=== PATIENT | female | born 1960 | race Caucasian/White ===

== ENCOUNTER 2017-02-03 16:37 | Emergency (ER) | payer BC ==
[2017-02-03 16:54] VITALS: BP 135/87; PULSE 88; RESP 18; TEMP 98.6
[2017-02-03] MEDS ORDERED: ORPHENADRINE 30 MG/ML 2 ML VIAL IM STA (17:00)
[2017-02-03] MEDS ORDERED: KETOROLAC 60 MG/2 ML VIAL IM STA (17:00)
--- NOTE | 2017-02-03 17:07 | ED ---
General Adult HPI - General Chief complaint: Back Pain/Injury Stated complaint: low back/leg pain Time Seen by Provider: 02/03/17 16:56 Source: patient, RN notes reviewed Mode of arrival: ambulatory Limitations: no limitations - History of Present Illness Initial comments: 56 yo female presents to the ER with cc of right sided back pain. Patient states she has had pain in the right side of the back that radiates into the right hip. She states walking seems to make it worse. She denies any loss of bowel or bladder function. She denies any saddle anesthesia. There is been no fever or chills. She states she was concerned due to the continued flare up with the pain so she thought that she should be evaluated. Patient denies any recent fever, chills, shortness of breath, chest pain, abdominal pain, nausea vomiting, numbness or tingling, dysuria or hematuria, constipation or diarrhea, headaches or visual changes, or any other current symptoms. - Related Data Previous Rx's Medication Instructions Recorded Acetaminophen-Codeine 300-30mg 1 each PO Q6H PRN #20 tablet 05/30/14 [Tylenol #3] Ibuprofen [Motrin] 800 mg PO Q8HR PRN #30 tab 05/30/14 Ibuprofen [Motrin] 600 mg PO Q6HR PRN #20 tab 02/03/17 Orphenadrine [Norflex] 100 mg PO Q12H #10 tablet.er 02/03/17 Allergies Allergy/AdvReac Type Severity Reaction Status Date / Time codeine AdvReac Unknown Verified 02/03/17 16:49 Review of Systems ROS Statement: Those systems with pertinent positive or pertinent negative responses have been documented in the HPI. ROS Other: All systems not noted in ROS Statement are negative. Past Medical History Past Medical History: No Reported History History of Any Multi-Drug Resistant Organisms: None Reported Past Surgical History: Section Past Psychological History: No Psychological Hx Reported Smoking Status: Never smoker Past Alcohol Use History: None Reported Past Drug Use History: None Reported General Exam Limitations: no limitations General appearance: alert, in no apparent distress ENT exam: Present: normal exam, mucous membranes moist Neck exam: Present: normal inspection. Absent: tenderness, meningismus, lymphadenopathy Respiratory exam: Present: normal lung sounds bilaterally. Absent: respiratory distress, wheezes, rales, rhonchi, stridor Cardiovascular Exam: Present: regular rate, normal rhythm, normal heart sounds. Absent: systolic murmur, diastolic murmur, rubs, gallop, clicks Back exam: Present: normal inspection, full ROM. Absent: tenderness, muscle spasm, paraspinal tenderness, vertebral tenderness Neurological exam: Present: alert, oriented X3 Psychiatric exam: Present: normal affect, normal mood Skin exam: Present: warm, dry, intact, normal color. Absent: rash Course Vital Signs 02/03/17 16:49 Temperature 98.6 F Pulse Rate 88 Respiratory 18 Rate Blood Pressure 135/87 O2 Sat by Pulse 96 Oximetry Medical Decision Making - Medical Decision Making 56-year-old female presents emergency department with a chief complaint of right -sided back pain. At this time patient appears in lumbar strain. We discussed results return parameters and follow-up. She was given medication for home. Discussed all the patient's family's questions. He stated the [facility] management this plan. This time the patient will be discharged home. - Radiology Data Radiology results: report reviewed, image reviewed Disposition Clinical Impression: Lumbar strain Disposition: HOME SELF-CARE Condition: Stable Instructions: Acute Low Back Pain (ED) Additional Instructions: Please use medication as discussed. Please follow up with family doctor if symptoms have not improved over the next two days. Please return to the emergency room if your symptoms increase or worsen or for any other concerns. Prescriptions: Ibuprofen [Motrin] 600 mg PO Q6HR PRN #20 tab PRN Reason: Pain Orphenadrine [Norflex] 100 mg PO Q12H #10 tablet.er Referrals: Yovani Delgado MD [Primary Care Provider] - 1-2 days Time of Disposition: 17:55
--- NOTE | 2017-02-03 17:44 | XR ---
EXAMINATION TYPE: XR lumbar spine 2 or 3V DATE OF EXAM: 02/03/2017 COMPARISON: NONE HISTORY: Back pain TECHNIQUE: 3 views FINDINGS: Lumbar vertebra have fairly normal alignment. There is mild spurring of the endplates. Ther e is mild disc space narrowing throughout the lumbar spine. I see no compression fracture. Sacroiliac joints appear normal. IMPRESSION: Multilevel spondylosis. No fracture seen.
== END 2017-02-03 18:01 | disposition home or self-care (01) ==
LOC: EC 16:37
DX: S39.012A Strain of muscle, fascia and tendon of lower back, initial encounter (principal); Z88.5 Allergy status to narcotic agent
CPT/HCPCS: 72100; 99283; 96372 ×2; J2360; J1885